=== PATIENT | female | born 1965 | race African-American/Black ===

== ENCOUNTER 2025-08-02 10:41 | Emergency (ER) | payer BC, MEDICAID ==
[~2025-08-02] VITALS: Ht 172.7 cm; Wt 76.0 kg
[2025-08-02 11:46] VITALS: TEMP 37; O2SAT 100
[2025-08-02 13:02] LABS: BASOPHILS % 0.4 % (0.0-2.0); EOSINOPHILS % 0.8 % (0.0-5.0); HEMATOCRIT. 41.3 % (36.0-48.0); HEMOGLOBIN. 13.5 g/dL (12.0-16.0); LYMPHOCYTES % 33.5 % (20.0-50.0); MEAN PLATELET VOLUME 9.8 fl (7.4-10.4); MONOCYTES % 6.4 % (2.0-8.0); NEUTROPHILS % 58.9 % (40.0-76.0); PLATELET 201 x1000/uL (130-400); RED BLOOD CELL COUNT 4.30 mill/uL (4.2-5.4); RED CELL DISTRIBUTION WIDTH 13.8 % (11.6-14.6)
[2025-08-02 13:15] LABS: CREATININE 0.7 mg/dL (0.6-1.0)
[2025-08-02 13:16] LABS: UREA NITROGEN BLOOD 12 mg/dL (9-23)
[2025-08-02 13:17] LABS: ASPARTATE AMINOTRANSFERASE 23 IU/L (<34); TROPONIN I HIGH SENSITIVITY < 4 ng/L (3.0-34)
[2025-08-02 13:18] LABS: BILIRUBIN DIRECT < 0.1 mg/dL (<=3.0); BILIRUBIN TOTAL 0.2 mg/dL (0.1-1.0); PROTEIN TOTAL 6.7 g/dL (6.0-8.3)
[2025-08-02 13:40] VITALS: BP 154/68; PULSE 52; RESP 14; O2SAT 99
== END 2025-08-02 13:51 | disposition home or self-care (01) ==
LOC: ER 10:41
DX: I10 Essential (primary) hypertension (principal)
CPT/HCPCS: 36415; 80048; 80076; 83735; 84484; 85025; 99283